=== PATIENT | male | born 2000 | race Two or more races ===

== ENCOUNTER 2020-06-29 10:37 | Emergency (ER) | payer OTHER ==
[2020-06-29] MEDS ORDERED: ARTIFICIAL TEAR15 ML OP (11:28)
== END 2020-06-29 11:46 | disposition home or self-care (01) ==
LOC: ER1 10:37
DX: H04.123 Dry eye syndrome of bilateral lacrimal glands (principal); F17.210 Nicotine dependence, cigarettes, uncomplicated
CPT/HCPCS: 99283